=== PATIENT | female | born 1980 | race Caucasian/White ===

== ENCOUNTER 2018-08-22 17:31 | Emergency (ER) | payer OTHER ==
[~2018-08-22] VITALS: Ht 165.1 cm; Wt 136.1 kg
[~2018-08-22 17:31] MED LIST: ALBU90OI; ALBU90OI6 INH; ALBU90OI61 INH; CRUTCH4 USE; CYCL10 PO; Cephalexin500 M1 PO; FLUSAL2505 INH; HYDACE5 PO; IBUP800; IBUP800 PO; Macrobid 100 M100 MG PO; Naprosyn500 MG PO; Norco 10-325 T1 EACH PO; Norco 5-325 Ta1 EACH PO; OXYACE5T; PROM25 PO; SULTRIDS PO; Ultram50 MG PO; Verotin-Gr Cap1 EACH PO
[2018-08-22] MEDS ORDERED: Prednisone20 MG PO (18:33)
== END 2018-08-22 19:00 | disposition home or self-care (01) ==
LOC: ER 17:31
DX: J06.9 Acute upper respiratory infection, unspecified (principal); R03.0 Elevated blood-pressure reading, without diagnosis of hypertension; J45.909 Unspecified asthma, uncomplicated; Z79.51 Long term (current) use of inhaled steroids; Z87.891 Personal history of nicotine dependence
CPT/HCPCS: 99282

== ENCOUNTER 2019-05-23 20:34 | Emergency (ER) | payer OTHER ==
[~2019-05-23] VITALS: Ht 167.6 cm; Wt 131.5 kg
[~2019-05-23 20:34] MED LIST changes: +Prednisone20 MG PO
[2019-05-23] MEDS ORDERED: Norco 5-325 Ta1 EACH PO (22:39)
== END 2019-05-23 23:04 | disposition home or self-care (01) ==
LOC: ER 20:34
DX: S09.90XA Unspecified injury of head, initial encounter (principal); S80.02XA Contusion of left knee, initial encounter; S80.01XA Contusion of right knee, initial encounter; J45.909 Unspecified asthma, uncomplicated; Z87.891 Personal history of nicotine dependence; V89.2XXA Person injured in unspecified motor-vehicle accident, traffic, initial encounter
CPT/HCPCS: 73562-LT; 99284-25

== ENCOUNTER 2019-05-30 17:40 | Emergency (ER) | payer OTHER ==
[~2019-05-30] VITALS: Ht 167.6 cm; Wt 131.5 kg
[2019-05-30] MEDS ORDERED: CEPH500 PO (20:23)
== END 2019-05-30 20:34 | disposition home or self-care (01) ==
LOC: ER 17:40
DX: L03.116 Cellulitis of left lower limb (principal); J45.909 Unspecified asthma, uncomplicated; D64.9 Anemia, unspecified; E66.9 Obesity, unspecified; Z68.42 Body mass index [BMI] 45.0-49.9, adult
CPT/HCPCS: 93971; 99283-25; A9270-GY

== ENCOUNTER 2019-11-19 16:54 | Emergency (ER) | payer OTHER ==
[~2019-11-19] VITALS: Ht 167.6 cm; Wt 136.1 kg
[~2019-11-19 16:54] MED LIST changes: +CEPH500 PO
[2019-11-19] MEDS ORDERED: Keflex500 MG PO (17:15)
[2019-11-19] MEDS ORDERED: Bactrim Ds Tab1 EACH PO (17:15)
== END 2019-11-19 17:26 | disposition home or self-care (01) ==
LOC: ER 16:54
DX: L03.311 Cellulitis of abdominal wall (principal); E65 Localized adiposity; Z87.891 Personal history of nicotine dependence
CPT/HCPCS: 99282